=== PATIENT | female | born 1960 | race American Indian/Alaskan Native ===

== ENCOUNTER 2017-10-28 21:38 | Emergency (ER) | payer BC, MEDICARE ==
[2017-10-28 23:02] LABS: Basophils % (Auto) 0.5 % (0.0-1.8); Eosinophils % (Auto) 1.7 % (0.0-4.3); Hemoglobin 12.2 gm/dl (10.1-14.3); Mean Corpuscular HGB Conc 33 % (30-34); Mean Corpuscular Hemoglobin 29 pg (28-32); Mean Corpuscular Volume 88 fl (79-97); Platelet Count 384 K/mm3 (140-440); Red Blood Count 4.18 M/mm3 (3.65-5.03); Red Cell Distribution Width 13.6 % (13.2-15.2); White Blood Count 9.3 K/mm3 (4.5-11.0)
[2017-10-28 23:24] LABS: Anion Gap 21 mmol/L; BUN/Creatinine Ratio 16; Blood Urea Nitrogen 8 mg/dL (7-17); Calcium 9.7 mg/dL (8.4-10.2); Carbon Dioxide 24 mmol/L (22-30); Chloride 98.4 mmol/L (98-107); Glucose 116 mg/dL (65-100); Potassium 4.1 mmol/L (3.6-5.0); Sodium 139 mmol/L (137-145)
[2017-10-29] VITALS: BP 111/71
== END 2017-10-29 02:50 | disposition left against medical advice (07) ==
LOC: ED 21:38
DX: R07.9 Chest pain, unspecified (principal); Z53.21 Procedure and treatment not carried out due to patient leaving prior to being seen by health care provider
CPT/HCPCS: 36415; 80048; 84484; 85025; 93005; 93010

== ENCOUNTER 2018-08-19 13:09 | Outpatient (CLI) | payer MEDICARE ==
--- NOTE | 2018-08-19 15:27 | Mammography Report ---
BILATERAL DIGITAL SCREENING MAMMOGRAM with CAD: 08/19/18 13:09:00 CLINICAL: Routine screening. COMPARISON:None available. FINDINGS: The breasts are heterogeneously dense, which may obscure small masses. No mass, architectural distortion or suspicious calcifications. IMPRESSION: No mammographic evidence of malignancy. BI-RADS CATEGORY: 1 - - Negative RECOMMENDATION: Routine mammographic screening in one year. COMMENT: Patient follow-up letters are generated by our [employer] application.
== END 2018-08-19 13:10 | disposition home or self-care (01) ==
LOC: MAMMO 13:09
PROVIDERS: ATTEND Internal Medicine
DX: Z12.31 Encounter for screening mammogram for malignant neoplasm of breast (principal); I10 Essential (primary) hypertension
CPT/HCPCS: 77067

== ENCOUNTER 2020-01-29 02:53 | Observation (INO) | payer MEDICARE ==
[2020-01-29] MEDS ORDERED: ASPIRIN 325 MG TAB PO ONE (03:11)
--- NOTE | 2020-01-29 03:38 | XRay Report ---
CHEST 1 VIEW INDICATION / CLINICAL INFORMATION: Chest Pain. COMPARISON: None available. FINDINGS: SUPPORT DEVICES: None. HEART / MEDIASTINUM: No significant abnormality. LUNGS / PLEURA: There is mild interstitial prominence bilaterally. Whether this represents some very minimal interstitial pulmonary edema or chronic interstitial lung disease is unclear, is a have no pr ior studies for comparison. I would favor chronic interstitial lung disease. I do not see any suggest ion of bacterial pneumonia or significant pleural effusion. No pneumothorax. ADDITIONAL FINDINGS: No significant additional findings. IMPRESSION: 1. Mild interstitial prominence bilaterally. Differential diagnosis includes mild chronic interstitia l lung disease versus minimal interstitial pulmonary edema. Please correlate clinically. Signer Name: Karey Hardwick MD Signed: 01/29/2020 3:34 AM Workstation Name: [id number]
[2020-01-29 04:11] LABS: Basophils # (Auto) 0.1 K/mm3 (0.0-0.1); Basophils % (Auto) 0.9 % (0.0-1.8); Eosinophils # (Auto) 0.9 K/mm3 (0.0-0.4); Eosinophils % (Auto) 10.3 % (0.0-4.3); Hematocrit 34.1 % (30.3-42.9); Hemoglobin 11.5 gm/dl (10.1-14.3); Lymphocytes # (Auto) 1.9 K/mm3 (1.2-5.4); Lymphocytes % (Auto) 21.5 % (13.4-35.0); Mean Corpuscular HGB Conc 34 % (30-34); Mean Corpuscular Volume 83 fl (79-97); Monocytes # (Auto) 0.6 K/mm3 (0.0-0.8); Monocytes % (Auto) 6.3 % (0.0-7.3); Platelet Count 400 K/mm3 (140-440); Red Blood Count 4.12 M/mm3 (3.65-5.03); Red Cell Distribution Width 14.6 % (13.2-15.2)
[2020-01-29 04:21] LABS: BUN/Creatinine Ratio 11; Blood Urea Nitrogen 9 mg/dL (7-17); Calcium 9.1 mg/dL (8.4-10.2); Hemolysis Index 7
[2020-01-29] MEDS ORDERED: POTASSIUM CHLORIDE ER 20 MEQ TAB PO ONE (04:41)
--- NOTE | 2020-01-29 04:41 | Event Note ---
Date: 01/29/20 Medical screening examination note: 59-year-old female with a history of HIV, on antiviral therapy, reports undetectable viral load, and "good CD4 count", hypertension and high cholesterol, history of colon cancer with colostomy, presenting to the ER today with a complaint of central chest wall pain, present for 5 days, nonradiating, with associated nausea and vomiting, last vomited 3 days ago, taking 6 tablets of ibuprofen daily. Physical examination is remarkable for reproducible chest wall tenderness. She also has a left lower quadrant colostomy. Denies recent surgery, travel, leg pain and leg swelling. 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 Troponin negative x1, EKG unremarkable and unchanged from prior. 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 Vital Signs 01/29/20 03:02 Temperature 99.0 F Pulse Rate 88 Respiratory 18 Rate Blood Pressure 117/61 O2 Sat by Pulse 96 Oximetry Lab Results 01/29/20 01/29/20 Range/Units 03:25 03:25 WBC 8.8 (4.5-11.0) K/mm3 RBC 4.12 (3.65-5.03) M/mm3 Hgb 11.5 (10.1-14.3) gm/dl Hct 34.1 (30.3-42.9) % MCV 83 (79-97) fl MCH 28 (28-32) pg MCHC 34 (30-34) % RDW 14.6 (13.2-15.2) % Plt Count 400 (140-440) K/mm3 Lymph % (Auto) 21.5 (13.4-35.0) % [place] % (Auto) 6.3 (0.0-7.3) % Eos % (Auto) 10.3 H (0.0-4.3) % Baso % (Auto) 0.9 (0.0-1.8) % Lymph # 1.9 (1.2-5.4) K/mm3 [place] # 0.6 (0.0-0.8) K/mm3 Eos # 0.9 H (0.0-0.4) K/mm3 Baso # 0.1 (0.0-0.1) K/mm3 Seg Neutrophils % 61.0 (40.0-70.0) % Seg Neutrophils # 5.4 (1.8-7.7) K/mm3 Sodium 135 L (137-145) mmol/L Potassium 2.9 L* (3.6-5.0) mmol/L Chloride 97.5 L (98-107) mmol/L Carbon Dioxide 21 L (22-30) mmol/L Anion Gap 19 mmol/L BUN 9 (7-17) mg/dL Creatinine 0.8 (0.7-1.2) mg/dL Estimated GFR > 60 ml/min BUN/Creatinine Ratio 11 % Glucose 94 (65-100) mg/dL Calcium 9.1 (8.4-10.2) mg/dL Troponin T < 0.010 (0.00-0.029) ng/mL
[2020-01-29] MEDS ORDERED: oxyCODONE /ACETAMINOPHEN 5-325MG TAB PO ONE (04:55)
[2020-01-29] MEDS ORDERED: SUCRALFATE 1 GM/10 ML ORAL LIQD PO ONE (04:55)
[2020-01-29] MEDS: FAMOTIDINE 20 MG TAB PO ONE (05:26)
[2020-01-29 05:31] LABS: INR 1.02 (0.87-1.13)
[2020-01-29] MEDS ORDERED: NITROGLYCERIN 2% OINT 1 GM TP ONE (06:18)
--- NOTE | 2020-01-29 06:22 | Emergency Department Report ---
HPI - General Chief Complaint: Chest Pain Time Seen by Provider: 01/29/20 06:08 - HPI HPI: Room 18 Patient is a 59-year-old female present with chief complaint of chest tightness. The patient states for the past 3 to 4 days she has had intermittent substernal chest pain described as tightness in nature. Patient admits to dizziness, shortness of breath, diaphoresis and nausea/vomiting with her chest pain. The patient states she is never had a stress test or cardiac catheterization ED Past Medical Hx - Past Medical History Previous Medical History?: Yes Hx Hypertension: Yes Hx of Cancer: Yes (Colorectal) Hx Asthma: Yes Hx HIV: Yes - Surgical History Past Surgical History?: Yes Additional Surgical History: colostomy bag - Family History Family history: no significant - Social History Smoking Status: Former Smoker (None x10 years) Substance Use Type: None (Denies illicit drug use), Alcohol (Occasional) - Medications Home Medications: Home Medications Medication Instructions Recorded Confirmed Last Taken Type ARIPiprazole [Abilify] 10 mg PO QHS 01/29/20 01/29/20 Unknown History Benztropine [Cogentin] 0.5 mg PO QHS 01/29/20 01/29/20 Unknown History Buprenorphine HCl/Naloxone HCl BID 01/29/20 Unknown History [Buprenorp-Nalox 8-2 mg Sl Film] Doxepin [SINEquan] 50 mg PO QHS 01/29/20 01/29/20 Unknown History Efavirenz/Emtricit/Tenofovr Df 1 each PO DAILY 01/29/20 01/29/20 Unknown History [Atripla Tablet] Pravastatin [Pravachol] 20 mg PO QHS 01/29/20 01/29/20 Unknown History amLODIPine [Norvasc] 10 mg PO DAILY 01/29/20 01/29/20 Unknown History hydrOXYzine PAMOATE [Vistaril] 25 mg PO BID 01/29/20 01/29/20 Unknown History hydroCHLOROthiazide [HCTZ] 25 mg PO QDAY 01/29/20 01/29/20 Unknown History ED Review of Systems ROS: Stated complaint: DIZZY/SOB/TIGHTNESS IN CHEST Other details as noted in HPI Constitutional: diaphoresis Eyes: denies: eye pain ENT: denies: throat pain Respiratory: shortness of breath Cardiovascular: chest pain Endocrine: no symptoms reported Gastrointestinal: nausea, vomiting Genitourinary: denies: dysuria Musculoskeletal: denies: back pain Neurological: denies: headache Physical Exam - Physical Exam Vital Signs: Vital Signs 01/29/20 03:02 Temperature 99.0 F Pulse Rate 88 Respiratory 18 Rate Blood Pressure 117/61 O2 Sat by Pulse 96 Oximetry Physical Exam: GENERAL: The patient is well-developed well-nourished female sitting on stretcher not appearing to be in acute distress. [] HEENT: Normocephalic. Atraumatic. Extraocular motions are intact. Patient has moist mucous membranes. NECK: Supple. Trachea midline CHEST/LUNGS: Clear to auscultation. There is no respiratory distress noted. HEART/CARDIOVASCULAR: Regular. There is no tachycardia. There is no gallop rub or murmur. ABDOMEN: Abdomen is soft, nontender. Patient has normal bowel sounds. There is no abdominal distention. SKIN: There is no rash. There is no diaphoresis. NEURO: The patient is awake, alert, and oriented. The patient is cooperative. The patient has normal speech MUSCULOSKELETAL: There is no evidence of acute injury. ED Course Vital Signs 01/29/20 03:02 Temperature 99.0 F Pulse Rate 88 Respiratory 18 Rate Blood Pressure 117/61 O2 Sat by Pulse 96 Oximetry ED Medical Decision Making - Lab Data Result diagrams: 01/29/20 03:25 01/29/20 03:25 Laboratory Tests 01/29/20 01/29/20 01/29/20 03:25 03:25 05:05 WBC 8.8 RBC 4.12 Hgb 11.5 Hct 34.1 MCV 83 MCH 28 MCHC 34 RDW 14.6 Plt Count 400 Lymph % (Auto) 21.5 [place] % (Auto) 6.3 Eos % (Auto) 10.3 H Baso % (Auto) 0.9 Lymph # 1.9 [place] # 0.6 Eos # 0.9 H Baso # 0.1 Seg Neutrophils % 61.0 Seg Neutrophils # 5.4 PT INR Sodium 135 L Potassium 2.9 L* Chloride 97.5 L Carbon Dioxide 21 L Anion Gap 19 BUN 9 Creatinine 0.8 Estimated GFR > 60 BUN/Creatinine Ratio 11 Glucose 94 Calcium 9.1 Magnesium 2.30 Total Creatine Kinase 750 H Troponin T < 0.010 01/29/20 05:07 WBC RBC Hgb Hct MCV MCH MCHC RDW Plt Count Lymph % (Auto) [place] % (Auto) Eos % (Auto) Baso % (Auto) Lymph # [place] # Eos # Baso # Seg Neutrophils % Seg Neutrophils # PT 13.5 INR 1.02 Sodium Potassium Chloride Carbon Dioxide Anion Gap BUN Creatinine Estimated GFR BUN/Creatinine Ratio Glucose Calcium Magnesium Total Creatine Kinase Troponin T - EKG Data -: EKG Interpreted by Me EKG shows normal: sinus rhythm Rate: normal - EKG Data When compared to previous EKG there are: no significant change Interpretation: other (No ischemic changes seen) - Radiology Data Radiology results: report reviewed (Chest x-ray), image reviewed (Chest x-ray) interpreted by me: Chest x-ray-no definite focal infiltrates, no pneumothorax Findings [facility] [address] [place] [address] XRay Report Signed Patient: CARY PERRIN MR#: [id number] : 1960 Acct:[id number] Age/Sex: 59 / F ADM Date: 01/29/20 Loc: ED Attending Dr: Ordering Physician: ED MD PIYUSH Date of Service: 01/29/20 Procedure(s): XR chest 1V ap Accession Number(s): [id number] cc: ED MD PIYUSH Fluoro Time In Minutes: CHEST 1 VIEW INDICATION / CLINICAL INFORMATION: Chest Pain. COMPARISON: None available. FINDINGS: SUPPORT DEVICES: None. HEART / MEDIASTINUM: No significant abnormality. LUNGS / PLEURA: There is mild interstitial prominence bilaterally. Whether this represents some very minimal interstitial pulmonary edema or chronic interstitial lung disease is unclear, is a have no prior studies for comparison. I would favor chronic interstitial lung disease. I do not see any suggestion of bacterial pneumonia or significant pleural effusion. No pneumothorax. ADDITIONAL FINDINGS: No significant additional findings. IMPRESSION: 1. Mild interstitial prominence bilaterally. Differential diagnosis includes mild chronic interstitial lung disease versus minimal interstitial pulmonary edema. Please correlate clinically. Signer Name: Karey Hardwick MD Signed: 01/29/2020 3:34 AM Workstation Name: [id number] Transcribed By: Dictated By: Karey Hardwick MD Electronically Authenticated By: Karey Hardwick MD Signed Date/Time: 01/29/20333 DD/ 2 TD/TT: - Differential Diagnosis ACS, pericarditis, GERD Critical care attestation.: If time is entered above; I have spent that time in minutes in the direct care of this critically ill patient, excluding procedure time. ED Disposition Clinical Impression: Chest pain Disposition: OP ADMIT IP TO THIS HOSP Is pt being admited?: Yes Does the pt Need Aspirin: Yes Condition: Fair Instructions: Chest Pain (ED) Referrals: WILLIAM PETERSON MD [Primary Care Provider] - 3-5 Days Time of Disposition: 07:16 (Hospitalist paged)
[2020-01-29] MEDS ORDERED: ONDANSETRON 4 MG/2 ML INJ IV PRN ×2 (07:47→08:30)
--- NOTE | 2020-01-29 07:47 | History and Physical Report ---
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 Presents to the ED today with report of nausea with vomiting 3 days ago resolved only after taking lactulose. Per the patient she felt she may have been constipated she reported that she had multiple retching episodes and since then has been having intermittent chest pain which is reproducible. She has also taken some ibuprofen for abdominal discomfort. She reports that since she took the lactulose and did have movement in her colostomy back she has not had any associated nausea or vomiting but has had persistent reproducible chest pain. She denies any fever at this time. Her HIV she states has undetectable undetectable viral load, and "good CD4 count", Past History Past Medical History: cancer (colon), HIV/AIDS, hypertension, hyperlipidemia, other (Colon cancer status post colectomy) Past Surgical History: bowel surgery Social history: no significant social history Family history: no significant family history Medications and Allergies Allergies Allergy/AdvReac Type Severity Reaction Status Date / Time Penicillins Allergy Unknown Verified 10/28/17 22:17 Home Medications Medication Instructions Recorded Confirmed Last Taken Type ARIPiprazole [Abilify] 10 mg PO QHS 01/29/20 01/29/20 Unknown History Benztropine [Cogentin] 0.5 mg PO QHS 01/29/20 01/29/20 Unknown History Buprenorphine HCl/Naloxone HCl 4 mg PO BID 01/29/20 01/29/20 Unknown History [Buprenorp-Nalox 8-2 mg Sl Film] Doxepin [SINEquan] 50 mg PO QHS 01/29/20 01/29/20 Unknown History Efavirenz/Emtricit/Tenofovr Df 1 each PO DAILY 01/29/20 01/29/20 Unknown History [Atripla Tablet] Pravastatin [Pravachol] 20 mg PO QHS 01/29/20 01/29/20 Unknown History amLODIPine [Norvasc] 10 mg PO DAILY 01/29/20 01/29/20 Unknown History hydrOXYzine PAMOATE [Vistaril] 25 mg PO BID 03/09/20 03/09/20 Unknown History hydroCHLOROthiazide [HCTZ] 25 mg PO QDAY 01/29/20 01/29/20 Unknown History Active Meds: Active Medications Amlodipine Besylate (Amlodipine) 10 mg PO DAILY [facility] Aripiprazole (Aripiprazole) 10 mg PO QHS [facility] Benztropine Mesylate (Cogentin) 0.5 mg PO QHS [facility] Doxepin HCl (Sinequan) 50 mg PO QHS [facility] Hydrochlorothiazide (Hctz) 25 mg PO QDAY [facility] Hydroxyzine Pamoate (Vistaril) 25 mg PO BID [facility] Miscellaneous Medication (Buprenorphine Hcl/Naloxone Hcl [Buprenorp-Nalox 8-2 Mg Sl Film]) 8 mg SL BID [facility] Miscellaneous Medication (Efavirenz/Emtricit/Tenofovr Df [Atripla Tablet]) 1 each PO DAILY [facility] Pravastatin Sodium (Pravachol) 20 mg PO QHS [facility] Review of Systems All systems: negative Constitutional: no weight loss, no weight gain, no fever, no chills, no sweats, no fatigue, no malaise, no lethargy Cardiovascular: chest pain, no orthopnea, no palpitations, no rapid/irregular heart beat, no edema, no syncope, no lightheadedness, no shortness of breath, no dyspnea on exertion, no paroxysmal nocturnal dyspnea, no claudication, no phlebitis Respiratory: no cough, no cough with sputum, no excessive sputum, no hemoptysis, no shortness of breath, no dyspnea on exertion, no congestion, no wheezing, no pleurisy, no pain, no pain on inspiration Gastrointestinal: abdominal pain, nausea, vomiting Exam - Physical Exam Narrative exam: VITAL SIGNS: Reviewed. GENERAL: The patient appears normally developed, Vital signs as documented. HEAD: No signs of head trauma. EYES: Pupils are equal. Extraocular motions intact. EARS: Hearing grossly intact. MOUTH: Oropharynx is normal. NECK: No adenopathy, no JVD. CHEST: Chest with clear breath sounds bilaterally. No wheezes, rales, or rhonchi. CARDIAC: Regular rate and rhythm. S1 and S2, without murmurs, gallops, or rubs. VASCULAR: No Edema. Peripheral pulses normal and equal in all extremities. ABDOMEN: Soft, non tender and non distended. Colostomy site intact and viable. Stool in bag. No rebound or guarding, and no masses palpated. Bowel Sounds normal. MUSCULOSKELETAL: Reproducible wall tenderness good range of motion of all major joints. Extremities without clubbing, cyanosis or edema. NEUROLOGIC EXAM: Alert and oriented x 3 No focal sensory or strength deficits . Speech normal. Follows commands. PSYCHIATRIC: Mood normal. SKIN: detial exam as documented in skin assessment - Constitutional Vitals: Temp Pulse Resp BP Pulse Ox 99.0 F 75 7 L 133/68 93 01/29/20 03:02 01/29/20 06:35 01/29/20 06:30 01/29/20 06:35 01/29/20 06:30 KELSEY score - Kelsey Score Age > 65: (0) No Aspirin use within the Past 7 Days: (1) Yes 3 or more CAD Risk Factors: (0) No 2 or more Angina events in past 24 hrs: (1) Yes Known CAD with more than 50% Stenosis: (0) No Elevated Cardiac Markers: (0) No ST Deviation Greater than 0.5mm: (0) No KELSEY Score: 2 Results - Labs CBC & Chem 7: 01/29/20 03:25 01/29/20 15:27 Labs: Laboratory Last Values WBC 8.8 K/mm3 (4.5-11.0) 01/29/20 03:25 RBC 4.12 M/mm3 (3.65-5.03) 01/29/20 03:25 Hgb 11.5 gm/dl (10.1-14.3) 01/29/20 03:25 Hct 34.1 % (30.3-42.9) 01/29/20 03:25 MCV 83 fl (79-97) 01/29/20 03:25 MCH 28 pg (28-32) 01/29/20 03:25 MCHC 34 % (30-34) 01/29/20 03:25 RDW 14.6 % (13.2-15.2) 01/29/20 03:25 Plt Count 400 K/mm3 (140-440) 01/29/20 03:25 Lymph % (Auto) 21.5 % (13.4-35.0) 01/29/20 03:25 [place] % (Auto) 6.3 % (0.0-7.3) 01/29/20 03:25 Eos % (Auto) 10.3 % (0.0-4.3) H 01/29/20 03:25 Baso % (Auto) 0.9 % (0.0-1.8) 01/29/20 03:25 Lymph # 1.9 K/mm3 (1.2-5.4) 01/29/20 03:25 [place] # 0.6 K/mm3 (0.0-0.8) 01/29/20 03:25 Eos # 0.9 K/mm3 (0.0-0.4) H 01/29/20 03:25 Baso # 0.1 K/mm3 (0.0-0.1) 01/29/20 03:25 Seg Neutrophils % 61.0 % (40.0-70.0) 01/29/20 03:25 Seg Neutrophils # 5.4 K/mm3 (1.8-7.7) 01/29/20 03:25 PT 13.5 Sec. (12.2-14.9) 01/29/20 05:07 INR 1.02 (0.87-1.13) 01/29/20 05:07 Sodium 135 mmol/L (137-145) L 01/29/20 03:25 Potassium 2.9 mmol/L (3.6-5.0) L* 01/29/20 03:25 Chloride 97.5 mmol/L (98-107) L 01/29/20 03:25 Carbon Dioxide 21 mmol/L (22-30) L 01/29/20 03:25 Anion Gap 19 mmol/L 01/29/20 03:25 BUN 9 mg/dL (7-17) 01/29/20 03:25 Creatinine 0.8 mg/dL (0.7-1.2) 01/29/20 03:25 Estimated GFR > 60 ml/min 01/29/20 03:25 BUN/Creatinine Ratio 11 % 01/29/20 03:25 Glucose 94 mg/dL (65-100) 01/29/20 03:25 Calcium 9.1 mg/dL (8.4-10.2) 01/29/20 03:25 Magnesium 2.30 mg/dL (1.7-2.3) 01/29/20 05:05 Total Creatine Kinase 750 units/L (30-135) H 01/29/20 05:05 Troponin T < 0.010 ng/mL (0.00-0.029) 01/29/20 06:02 Assessment and Plan Assessment and plan: Patient is a 59-year-old female with past medical history of HIV, hypertension, hypercholesterolemia, history of colon cancer status post resection and years later developed ischemic colitis requiring colostomy. Presents to the ED today with report of nausea with vomiting 3 days ago resolved only after taking lactulose. Per the patient she felt she may have been constipated she reported that she had multiple retching episodes and since then has been having intermittent chest pain which is reproducible. She has also taken some ibuprofen for abdominal discomfort. She reports that since she took the lactulose and did have movement in her colostomy back she has not had any associated nausea or vomiting but has had persistent reproducible chest pain. She denies any fever at this time. Her HIV she states has undetectable undetectable viral load, and "good CD4 count", Initial cardiac work-up has been negative. Atypical chest pain likely costochondritis Acute gastroenteritis now resolving Constipation Hypokalemia Hyponatremia Metabolic acidosis Plan Admit patient to telemetry Obtain KUB to ensure resolution of constipation Antiemetic medication Pain control patient is on Suboxone will try as much not to use opiates although studies have shown that short-term opioids while on Suboxone for an acute pain is appropriate. And does not necessarily lead to relapse. Monitor for any signs of overdose Cardiology consultation DVT and GI prophylaxis Chest pain protocol Plan of care discussed with the patient in detail Advance Directives: Yes Plan of care discussed with patient/family: Yes
[2020-01-29] MEDS ORDERED: ACETAMINOPHEN 325 MG TAB PO PRN (08:00)
[2020-01-29] MEDS ORDERED: ALBUTEROL 2.5 MG/3 ML NEBU IH PRN (08:00)
--- NOTE | 2020-01-29 08:26 | XRay Report ---
ABDOMEN 1 VIEW(S) INDICATION / CLINICAL INFORMATION: MAIN: persistent nausea and vomiting; For 1 week, chest tightness , dizziness and DIRK.. COMPARISON: None available. FINDINGS: TUBES / LINES: None. BOWEL GAS PATTERN: No significant abnormality. FREE AIR / EXTRALUMINAL GAS: None seen. ADDITIONAL FINDINGS: A safety pin overlies the mid abdomen which is presumably external to the patien t although an ingested foreign body cannot be excluded. Please correlate with the patient. IMPRESSION: No significant abnormality. Signer Name: Murali Lorenzo Jr, MD Signed: 01/29/2020 8:21 AM Workstation Name: [id number]
[2020-01-29 09:31] LABS: Alanine Aminotransferase 23 units/L (7-56); Albumin 4.3 g/dL (3.9-5)
[2020-01-29 09:55] LABS: Bilirubin,Direct < 0.2 mg/dL (0-0.2)
[2020-01-29] MEDS ORDERED: [UNRECOGNIZED DRUG - OTHER] PO SCH (10:00)
[2020-01-29] MEDS ORDERED: [UNRECOGNIZED DRUG - OTHER] SL SCH (10:00)
[2020-01-29] MEDS ORDERED: amLODIPine 10 MG TAB PO SCH (10:00)
[2020-01-29] MEDS ORDERED: BUPRENORPHINE HCL SL SCH (10:00)
[2020-01-29] MEDS ORDERED: hydrOXYzine PAMOATE 25 MG CAP PO SCH (10:00)
[2020-01-29] MEDS ORDERED: NALOXONE HCL SL SCH (10:00)
[2020-01-29] MEDS ORDERED: BUPRENORPHINE 2 MG/NALOXONE 0.5 MG FILM SL SCH (10:00)
[2020-01-29] MEDS ORDERED: hydroCHLOROthiazide 25 MG TAB PO SCH (10:00)
[2020-01-29] MEDS ORDERED: KETOROLAC 30 MG/1 ML INJ IV ONE (15:56)
[2020-01-29 15:59] LABS: BUN/Creatinine Ratio 13; Blood Urea Nitrogen 9 mg/dL (7-17); Calcium 9.3 mg/dL (8.4-10.2); Hemolysis Index 3
--- NOTE | 2020-01-29 17:02 | Consultation ---
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 She is previously unknown to our practice. She presented with c/o nausea with vomiting x 3 days and intermittent chest pain for the past 1 week. She describes her chest pain as an intermittent substernal aching and stabbing pain. She has also been experiencing dyspnea on exertion. She denies any known prior cardiac issues. Past History Past Medical History: cancer (colon), HIV/AIDS, hypertension, hyperlipidemia, other (Colon cancer status post colectomy) Past Surgical History: bowel surgery Social history: no significant social history Family history: no significant family history Medications and Allergies Allergies Allergy/AdvReac Type Severity Reaction Status Date / Time Penicillins Allergy Unknown Verified 10/28/17 22:17 Home Medications Medication Instructions Recorded Confirmed Last Taken Type ARIPiprazole [Abilify] 10 mg PO QHS 01/29/20 01/29/20 Unknown History Benztropine [Cogentin] 0.5 mg PO QHS 01/29/20 01/29/20 Unknown History Buprenorphine HCl/Naloxone HCl 4 mg PO BID 01/29/20 01/29/20 Unknown History [Buprenorp-Nalox 8-2 mg Sl Film] Doxepin [SINEquan] 50 mg PO QHS 01/29/20 01/29/20 Unknown History Efavirenz/Emtricit/Tenofovr Df 1 each PO DAILY 01/29/20 01/29/20 Unknown History [Atripla Tablet] Pravastatin [Pravachol] 20 mg PO QHS 01/29/20 01/29/20 Unknown History amLODIPine [Norvasc] 10 mg PO DAILY 01/29/20 01/29/20 Unknown History hydrOXYzine PAMOATE [Vistaril] 25 mg PO BID 01/29/20 01/29/20 Unknown History hydroCHLOROthiazide [HCTZ] 25 mg PO QDAY 01/29/20 01/29/20 Unknown History Active Meds: Active Medications Acetaminophen (Tylenol) 650 mg PO Q4H PRN PRN Reason: Pain MILD(1-3)/Fever >100.5/CHAN Albuterol (Proventil) 2.5 mg IH Q4HRT PRN PRN Reason: Shortness Of Breath Amlodipine Besylate (Amlodipine) 10 mg PO DAILY [facility] Last Admin: 01/29/20 11:19 Dose: 10 mg Documented by: Aripiprazole (Aripiprazole) 10 mg PO QHS [facility] Benztropine Mesylate (Cogentin) 0.5 mg PO QHS [facility] Buprenorphine HCl (Suboxone 2 Mg-0.5 Mg) 4 each SL BID [facility] Last Admin: 01/29/20 11:24 Dose: 4 each Documented by: Doxepin HCl (Sinequan) 50 mg PO QHS [facility] Hydrochlorothiazide (Hctz) 25 mg PO QDAY [facility] Last Admin: 01/29/20 11:19 Dose: 25 mg Documented by: Hydroxyzine Pamoate (Vistaril) 25 mg PO BID [facility] Last Admin: 01/29/20 16:29 Dose: 25 mg Documented by: Miscellaneous Medication (Efavirenz/Emtricit/Tenofovr Df [Atripla Tablet]) 1 each PO DAILY [facility] Ondansetron HCl (Zofran) 4 mg IV Q8H PRN PRN Reason: Nausea And Vomiting Pravastatin Sodium (Pravachol) 20 mg PO QHS [facility] Sodium Chloride (Sodium Chloride Flush Syringe 10 Ml) 10 ml IV BID [facility] Last Admin: 01/29/20 11:20 Dose: 10 ml Documented by: Sodium Chloride (Sodium Chloride Flush Syringe 10 Ml) 10 ml IV PRN PRN PRN Reason: LINE FLUSH Review of Systems Constitutional: no weight loss, no weight gain, no fever, no chills, no sweats Ears, nose, mouth and throat: no ear pain, no nose pain, no sinus pressure, no sinus pain Cardiovascular: chest pain, shortness of breath, dyspnea on exertion, high blood pressure, no orthopnea, no palpitations, no rapid/irregular heart beat, no edema, no syncope, no lightheadedness Respiratory: no cough, no congestion, no wheezing, no pain on inspiration Gastrointestinal: nausea, vomiting, no diarrhea, no constipation Genitourinary Female: no pelvic pain, no flank pain, no dysuria, no urinary frequency, no urgency Musculoskeletal: no neck stiffness, no neck pain, no shooting arm pain, no arm numbness/tingling, no low back pain, no shooting leg pain Integumentary: no rash, no pruritis, no redness, no sores, no wounds Neurological: no head injury, no paralysis, no weakness, no parathesias, no numbness, no tingling, no seizures, no syncope Psychiatric: no anxiety Endocrine: no cold intolerance, no heat intolerance Hematologic/Lymphatic: no easy bruising Allergic/Immunologic: no urticaria Physical Examination Vital Signs Temp Pulse Resp BP Pulse Ox 99.0 F 88 18 117/61 96 01/29/20 03:02 01/29/20 03:02 01/29/20 03:02 01/29/20 03:02 01/29/20 03:02 General appearance: no acute distress HEENT: Positive: PERRL, Normocephaly, Mucus Membranes Moist Neck: Positive: neck supple, trachea midline Cardiac: Positive: Reg Rate and Rhythm, S1/S2 Lungs: Positive: Decreased Breath Sounds Neuro: Positive: Grossly Intact Abdomen: Positive: Other (colostomy) Musculoskeletal: No Pain Extremities: Absent: edema Results 01/29/20 03:25 01/29/20 15:27 Cardiac Enzymes 01/29/20 Range/Units 05:05 AST 37 (5-40) units/L Coagulation 01/29/20 Range/Units 05:07 PT 13.5 (12.2-14.9) Sec. INR 1.02 (0.87-1.13) CBC 01/29/20 Range/Units 03:25 WBC 8.8 (4.5-11.0) K/mm3 RBC 4.12 (3.65-5.03) M/mm3 Hgb 11.5 (10.1-14.3) gm/dl Hct 34.1 (30.3-42.9) % Plt Count 400 (140-440) K/mm3 Lymph # 1.9 (1.2-5.4) K/mm3 [place] # 0.6 (0.0-0.8) K/mm3 Eos # 0.9 H (0.0-0.4) K/mm3 Baso # 0.1 (0.0-0.1) K/mm3 Comprehensive Metabolic Panel 01/29/20 01/29/20 01/29/20 Range/Units 03:25 05:05 15:27 Sodium 135 L 139 (137-145) mmol/L Potassium 2.9 L* 3.8 D (3.6-5.0) mmol/L Chloride 97.5 L 103.4 (98-107) mmol/L Carbon Dioxide 21 L 20 L (22-30) mmol/L BUN 9 9 (7-17) mg/dL Creatinine 0.8 0.7 (0.7-1.2) mg/dL Glucose 94 132 H (65-100) mg/dL Calcium 9.1 9.3 (8.4-10.2) mg/dL Direct Bilirubin < 0.2 (0-0.2) mg/dL Indirect Bilirubin 0.0 mg/dL AST 37 (5-40) units/L ALT 23 (7-56) units/L Alkaline Phosphatase 88 (35-129) units/L Total Protein 7.2 (6.3-8.2) g/dL Albumin 4.3 (3.9-5) g/dL - Imaging and Cardiology Echo: pending EKG: report reviewed, image reviewed EKG interpretations - Telemetry EKG Rhythm: Sinus Rhythm - EKG Sinus rhythms and dysrhythmias: sinus rhythm Assessment and Plan AMI r/o. Obtain echo. Plan for lexiscan MPI stress test in AM. NPO after MN. The patient has been seen in conjunction with Dr. Soriano who agrees with the assessment and plan of care. - Patient Problems (1) Chest pain Current Visit: Yes Status: Acute (2) Nausea and vomiting Current Visit: Yes Status: Acute (3) History of colon cancer Current Visit: Yes Status: Chronic (4) Colostomy in place Current Visit: Yes Status: Chronic (5) HTN (hypertension) Current Visit: Yes Status: Chronic (6) Hypokalemia Current Visit: Yes Status: Acute (7) HIV (human immunodeficiency virus infection) Current Visit: Yes Status: Chronic
[2020-01-29 20:29] VITALS: BP 124/64
[2020-01-29] MEDS ORDERED: PRAVASTATIN 20 MG TAB PO SCH (22:00)
[2020-01-29] MEDS ORDERED: DOXEPIN 25 MG CAP PO SCH (22:00)
[2020-01-29] MEDS ORDERED: ARIPiprazole 10 MG TAB PO SCH (22:00)
[2020-01-29] MEDS ORDERED: BENZTROPINE 0.5 MG TAB PO SCH (22:00)
== END 2020-01-29 20:14 | disposition left against medical advice (07) ==
LOC: ED 02:53 → 4A 07:18
PROVIDERS: ADMIT Internal Medicine; ATTEND Internal Medicine
DX: R07.89 Other chest pain (principal); K52.9 Noninfective gastroenteritis and colitis, unspecified; I10 Essential (primary) hypertension; K59.00 Constipation, unspecified; E87.6 Hypokalemia; E87.1 Hypo-osmolality and hyponatremia; E87.2 Acidosis; E78.5 Hyperlipidemia, unspecified; Z85.038 Personal history of other malignant neoplasm of large intestine; Z21 Asymptomatic human immunodeficiency virus [HIV] infection status
CPT/HCPCS: 36415; 71045; 74018; 80048; 80076; 82550; 83735; 84484; 85025; 85610; 93005; 93010; 96374; 99285; G0378; J1885; Q0177

== ENCOUNTER 2022-08-21 13:25 | Outpatient (CLI) | payer MEDICARE ==
--- NOTE | 2022-08-25 10:16 | Mammography Report ---
DIGITAL SCREENING MAMMOGRAM WITH CAD, 08/21/2022 CLINICAL INFORMATION / INDICATION: Routine screening mammography. SCREENING MAMMOGRAM Z12.31 TECHNIQUE: Digital bilateral 2D mammography was obtained in the craniocaudal and mediolateral obliqu e projections. This examination was interpreted with the benefit of Computer-Aided Detection analysis . COMPARISON: Prior mammogram 08/19/2018 FINDINGS: Breast Density: There are scattered areas of fibroglandular density. No dominant mass, suspicious calcifications, or architectural distortion in either breast. There has been no significant change compared with the prior examination. IMPRESSION: No mammographic evidence of malignancy. Follow up recommendation: Routine yearly screening mammogram. BI-RADS Category 1: NEGATIVE A "normal" or negative report should not discourage follow up or biopsy of a clinically significant f inding. A written summary of these findings will be mailed to the patient. The patient will be entered into a mammography reporting system which will generate a reminder letter for the patient's next appointmen t at the appropriate interval. The [employer] recommends yearly mammograms starting at age 40 and continuing as l demetrius as a woman is in good health. Breast MRI is recommended for women with an approximate 20-25% or greater lifetime risk of breast cancer, including women with a strong family history of breast or ova claire cancer or who have been treated for Hodgkin's disease. Signer Name: Mary Armendariz MD Signed: 08/25/2022 10:11 AM Workstation Name: [facility]
== END 2022-08-21 13:26 | disposition home or self-care (01) ==
LOC: MAMMO 13:25
PROVIDERS: ATTEND Internal Medicine
DX: Z12.31 Encounter for screening mammogram for malignant neoplasm of breast (principal)
CPT/HCPCS: 77067